=== PATIENT | male | born 1985 | race Caucasian/White ===

== ENCOUNTER 2024-01-29 07:08 | Emergency (ER) | payer BC, SELFPAY ==
[2024-01-29 07:10] VITALS: BP 155/91
--- NOTE | 2024-01-29 08:00 | ED.GENMED ---
History of Present Illness
<Tong Zarate PA-C - Last Filed: 01/29/24 11:09>
General
Chief Complaint: Swelling
Source: patient
Exam Limitations: none
Time Seen by Provider: 01/29/24 07:43
History of Present Illness
History of Present Illness:
38-year-old male with history of reflux presents with 2 weeks worth of progressively worsening pain redness and swelling to the feet and hands bilaterally. He denies measurable fever. No known tick exposure. No family history of autoimmune
disease. No history of gout. He denies any recent alcohol use. He was seen in urgent care 3 days ago was noted to have high platelets and the Lyme test was negative. No new medications. No other complaints at this time
Phy Exam
<Tong Zarate PA-C - Last Filed: 01/29/24 11:09>
Physical Exam
Physical Exam:
General: Well-appearing male no acute respiratory distress
HEENT: Normocephalic atraumatic
Heart: Regular rate and rhythm no murmurs
Lungs: Clear no wheeze
Abdomen soft nontender
Musculoskeletal exam: There is erythema and swelling noted over feet bilaterally mainly over the first MTP joints bilaterally however these joints are nontender. There is also swelling and erythema noted to the dorsum of the hand at the level of
the MCP joints of the ring and small finger. He exhibits good range of motion of these joints. There is no fluctuance or induration.
Extremities: No pitting edema
Course
<Tong Zarate PA-C - Last Filed: 01/29/24 11:09>
Orders/Labs/Results
Orders:
Orders
01/29/24 08:06
CRP [C-Reactive Protein] Urgent
Complete Blood Count/With Diff Urgent
Comprehensive Metabolic Panel Urgent
NT-proBNP Urgent
Sed Rate [Erythrocyte Sed Rate] Urgent
Uric Acid Urgent
01/29/24 09:41
Urinalysis Reflex To Culture Urgent
Date Specimen was Collected: 01/29/24
Time Specimen was Collected: 09:03
Abnormal Lab Results
01/29/24
08:06
RBC 4.12 L 10^6/uL
(4.70-6.10)
Hgb 12.4 L g/dL
(13.0-18.0)
Hct 36.0 L %
(39.0-52.0)
Plt Count 502 H 10^3/uL
(130-400)
Absolute Monos (auto) 0.8 H 10^3/uL
(0.1-0.6)
Lymphocytes % 17.3 L %
(20.5-51.1)
ESR 61 H mm/hour
(0-20)
Alkaline Phosphatase 139 H U/L
(38-126)
C-Reactive Protein 59.10 H mg/L
(0.0-10.00)
01/29/24 08:06
01/29/24 08:06
Vital Signs
Initial and Last Documented VS:
Initial Vital Signs
Temp Pulse Resp BP Pulse Ox
97.5 F 91 16 155/91 99
01/29/24 07:10 01/29/24 07:10 01/29/24 07:10 01/29/24 07:10 01/29/24 07:10
Last Documented Vital Signs
Temp Pulse Resp BP Pulse Ox
98.2 F 78 20 163/102 97
01/29/24 09:04 01/29/24 09:04 01/29/24 09:04 01/29/24 09:04 01/29/24 09:04
Clarkelt;Daniel García DO - Last Filed: 01/29/24 11:16>
Orders/Labs/Results
Orders:
Orders
01/29/24 08:06
CRP [C-Reactive Protein] Urgent
Complete Blood Count/With Diff Urgent
Comprehensive Metabolic Panel Urgent
NT-proBNP Urgent
Sed Rate [Erythrocyte Sed Rate] Urgent
Uric Acid Urgent
01/29/24 09:41
Urinalysis Reflex To Culture Urgent
Date Specimen was Collected: 01/29/24
Time Specimen was Collected: 09:03
Abnormal Lab Results
01/29/24
08:06
RBC 4.12 L 10^6/uL
(4.70-6.10)
Hgb 12.4 L g/dL
(13.0-18.0)
Hct 36.0 L %
(39.0-52.0)
Plt Count 502 H 10^3/uL
(130-400)
Absolute Monos (auto) 0.8 H 10^3/uL
(0.1-0.6)
Lymphocytes % 17.3 L %
(20.5-51.1)
ESR 61 H mm/hour
(0-20)
Alkaline Phosphatase 139 H U/L
(38-126)
C-Reactive Protein 59.10 H mg/L
(0.0-10.00)
01/29/24 08:06
01/29/24 08:06
Vital Signs
Initial and Last Documented VS:
Initial Vital Signs
Temp Pulse Resp BP Pulse Ox
97.5 F 91 16 155/91 99
01/29/24 07:10 01/29/24 07:10 01/29/24 07:10 01/29/24 07:10 01/29/24 07:10
Last Documented Vital Signs
Temp Pulse Resp BP Pulse Ox
98.2 F 78 20 163/102 97
01/29/24 09:04 01/29/24 09:04 01/29/24 09:04 01/29/24 09:04 01/29/24 09:04
<Tong Zarate PA-C - Last Filed: 01/29/24 11:09>
MDM/Problems Addressed
Differential Diagnosis Includes:
Polyarthralgia with fatigue. Recent Lyme test negative. Will recheck blood work including inflammatory markers. Question underlying inflammatory process. Do not suspect infectious process given the multiple joint involvement. Gout also
consideration but not typical given the multiple joint involvement as well.
<Tong Zarate PA-C - Last Filed: 01/29/24 11:09>
*Critical Care Note
Total Time (30-74mins, 75-104mins- exclusive of procedures): Not Applicable
<Tong Zarate PA-C - Last Filed: 01/29/24 11:09>
Update Note
Update Note:
Inflammatory markers elevated here. Patient with polyarthralgia question inflammatory process or autoimmune process. Discussed with emergency room attending Jose placed on steroid taper and advised follow-up with rheumatology.
ED Attending Note
<Tong Zarate PA-C - Last Filed: 01/29/24 11:09>
-
Portions of this chart may have been created with voice recognition software.� Occasional wrong word or��sound alike� substitutions may have occurred due to the inherent limitations of voice recognition software.
<Daniel García DO - Last Filed: 01/29/24 11:16>
ED Attending Note
Patient seen and examined by attending physician: Yes
I performed the substantive portion of visit, reviewed & personally made and approve the management plan that is documented in note by myself or CHICHI.: Yes
ED Attending Note:
Patient is a 38-year-old male who presents with increasing diffuse joint pain and diffuse swelling over the past 2 to 3 weeks. Now involving his left hand with some erythema. Patient denies any recent medication changes. Patient denies any
rashes. Patient denies fever or chills. Patient had an negative Lyme test 3 days ago. Patient denies any GI or symptoms. Patient states he feels fatigued. On physical exam patient does appear to be uncomfortable. Heart is regular lungs are
clear. Abdomen soft nontender. Patient does have edema of bilateral lower legs as well as the left hand. Patient feels swollen in his joints when he moves them. No sign of PE or DVT. Patient has an elevated sed rate as well as CRP. Patient's
urine is unremarkable. Does not appear to be nephrotic syndrome. More concerning about possible polymyalgia rheumatica. Patient be started on steroids. Patient referred to rheumatology.
Discharge Plan
Departure
Patient Disposition: Home (Routine Discharge)
Date of Disposition: 01/29/24
Time of Disposition: 11:06
Patient with high blood pressure during this ER visit?: No
Discharge Problem:
Polyarthralgia
Instructions: Swollen Joints
Prescriptions:
New
prednisone 10 mg Tablet
See Rx Instructions .ROUTE .COMPLEX Qty: 30 0RF
Rx Instructions:
Take By Mouth:
40 mg daily x3 days, 30 mg daily x3 days,
20 mg daily x3 days, 10 mg daily x3 days.
Referrals:
Jhony Tineo DO [Family Provider] -
Ariadna Arriola MD [Active] -
Activity Restrictions/Additional Instructions:
Take steroid as directed. Elevate legs for swelling. Follow-up with rheumatology. Return if worse otherwise
Interventions
Interventions:
*Risk Screen - Suicide Last Done: 01/29/24 07:15
*General Assessment Last Done: 01/29/24 08:14
*Neglect/Abuse Screening Last Done: 01/29/24 07:15
ED- Fall Risk Assessment Last Done: 01/29/24 08:14
*ED COVID-19 Vaccine History Last Done: 01/29/24 07:14
ED- Cardiac Assessment Last Done: 01/29/24 08:14
ED- Pulmonary Assessment Last Done: 01/29/24 08:14
ED-Skin Assessment Last Done: 01/29/24 08:14
Discharge Date and Time
Print Language: BULGARIAN
[2024-01-29 08:13] VITALS: BMI 38.7
[2024-01-29 08:14] VITALS: BP 145/85
[2024-01-29 08:23] LABS: % Basophils 0.6 % (0-2); % Eosinophils 1.5 % (0-6); % Immature Granulocytes 0.3 % (0-0.5); % Lymphocytes 17.3 % (20.5-51.1); % Monocytes 8.8 % (1.7-9.3); % Neutrophils 71.5 % (42.2-75.2); Absolute Basophils 0.1 10^3/uL (0-0.2); Absolute Eosinophils 0.1 10^3/uL (0-0.7); Absolute Lymphocytes 1.6 10^3/uL (1.2-3.4); Absolute Monocytes 0.8 10^3/uL (0.1-0.6); Absolute Neutrophils 6.4 10^3/uL (1.4-6.5); Hemoglobin 12.4 g/dL (13.0-18.0); Mean Corp Hgb Conc. 34.4 g/dL (33.0-37.0); Mean Corpuscular Hgb 30.1 pg (27.0-31.0); Mean Corpuscular Volume 87.4 fL (80.0-94.0); Mean Platelet Volume 9.2 fL (7.4-10.4); Nucleated Red Blood Cells % 0 % (-); Platelet Count 502 10^3/uL (130-400); Red Blood Cell Count 4.12 10^6/uL (4.70-6.10); Red Cell Dist. Width 12.6 % (11.5-14.5)
[2024-01-29 08:39] LABS: ALT (SGPT) 38 U/L (0-50); AST (SGOT) 32 U/L (17-59); Albumin 3.9 g/dl (3.5-5.0); Alkaline Phosphatase 139 U/L (38-126); Blood Urea Nitrogen 15 mg/dl (9-20); Calcium 9.2 mg/dl (8.4-10.2); Carbon Dioxide 25 mmol/L (22-30); Chloride 104 mmol/L (98-107); Estimated Creatinine Clearance > 125 ml/min; Glucose 92 mg/dl (70-99); Potassium 4.3 mmol/L (3.5-5.1); Sodium 138 mmol/L (135-145); Total Bilirubin 0.5 mg/dl (0.2-1.3); Total Protein 6.9 g/dl (6.3-8.2); eGFR > 60.00
[2024-01-29 08:40] LABS: NT-proBNP 27.2 pg/ml
[2024-01-29 09:00] VITALS: BP 163/102
[2024-01-29 09:04] VITALS: BP 163/102
[2024-01-29 09:27] LABS: Uric Acid 5.8 mg/dl (3.5-8.5)
[2024-01-29 09:33] VITALS: BP 172/103
[2024-01-29 09:39] LABS: Erythrocyte Sed Rate 61 mm/hour (0-20)
[2024-01-29 09:48] LABS: Urine Albumin Trace (Neg - Trace); Urine Bilirubin Negative (Negative); Urine Character Clear (Clear); Urine Color Yellow; Urine Glucose Negative (Negative); Urine Ketone Negative (Negative); Urine Leukocyte Negative (Negative); Urine Nitrite Negative (Negative); Urine Occult Blood Negative (Negative); Urine Specific Gravity 1.015 (<1.030); Urine Urobilinogen Negative (Neg - 1+)
--- NOTE | 2024-01-29 10:57 | EDRN ---
Akbar AVILES currently at the pts bedside
[2024-01-29 11:16] VITALS: BP 146/71
== END 2024-01-29 11:18 | disposition home or self-care (01) ==
LOC: EMR 07:08
PROVIDERS: Physician Assistant; EMERGENCY PHYSICIAN Emergency Medicine; FAMILY PHYSICIAN Family Medicine
DX: M25.542 Pain in joints of left hand (principal); M25.541 Pain in joints of right hand; M25.572 Pain in left ankle and joints of left foot; M25.571 Pain in right ankle and joints of right foot; K21.9 Gastro-esophageal reflux disease without esophagitis
CPT/HCPCS: 99283; 80053; 81003; 83880; 84550; 85025; 85652; 86140